=== PATIENT | female | born 1975 | race Caucasian/White ===

== ENCOUNTER → 2018-04-21 | Outpatient (CLI) | payer OTHER ==
[~2018-04-21] MED LIST: ALB0.5 INH; CETI-175 PO; CIT20 PO; IBU800 PO; PER PO
--- NOTE | 2018-04-21 14:24 | RADIOLOGY IMAGING REPORT ---
FACILITY: [facility] - [place] PATIENT NAME: VASQUEZ BOONE : [id number] MR: [id number] V: [id number] EXAM DATE: [id number] ORDERING PHYSICIAN: CJ SANCHES TECHNOLOGIST: Haydee Rincon PROCEDURE:BILATERAL DIAGNOSTIC DIGITAL MAMMOGRAM WITH CAD ASSISTED INTERPRETATION & 3D TOMOSYNTHESIS COMPARISON:None. INDICATIONS:LUMP AND PAIN RT BREAST FINDINGS: The breast tissue is heterogeneously dense. There is no suspicious mass, calcification, or architectural distortion. DIAGNOSTIC CATEGORY 0--INCOMPLETE: NEED ADDITIONAL IMAGING EVALUATION. RECOMMENDATIONS: ULTRASOUND: RIGHT BREAST FOR FURTHER EVALUATION OF PALPABLE LUMP. IMPRESSION: BIRADS 0: Incomplete. No mammographic evidence for malignancy. Dictated by: Shivam Frey M.D. on 04/21/2018 at 12:12 Transcribed by: JENNIFER on 04/21/2018 at 13:34 Approved by: Sihvam Frey M.D. on 04/21/2018 at 14:24 [facility]
--- NOTE | 2018-04-21 14:25 | RADIOLOGY IMAGING REPORT ---
FACILITY: [facility] - [place] PATIENT NAME: VASQUEZ BOONE : [id number] MR: [id number] V: [id number] EXAM DATE: [id number] ORDERING PHYSICIAN: CJ SANCHES TECHNOLOGIST: Alivia Corona RT(R)(CT) PROCEDURE:US RIGHT BREAST COMPARISON:Mammogram 04/21/2018. INDICATIONS:PALPABLE LUMP AND PAIN RIGHT BREAST. FINDINGS: Ultrasound images of the Right breast from the 2-11 o'clock position of the patient's palpable lump demonstrates a benign ridge of fibrous tissue. There is a small cyst identified. DIAGNOSTIC CATEGORY 2--BENIGN FINDING. RECOMMENDATIONS: ROUTINE MAMMOGRAM AND CLINICAL EVALUATION. IMPRESSION: BIRADS 2: Benign finding. The patient's palpable lump represents a benign ridge of fibrous tissue. This was discussed with the patient by Dr. Frey. Dictated by: Shivam Frey M.D. on 04/21/2018 at 12:14 Transcribed by: JENNIFER on 04/21/2018 at 13:39 Approved by: Shivam Frey M.D. on 04/21/2018 at 14:24 [facility]
== END ==
LOC: MAMO 04-03 00:49
PROVIDERS: ATTEND Nurse Practitioner Family
DX: N60.01 Solitary cyst of right breast (principal)
CPT/HCPCS: 77062; 77066